=== PATIENT | male | born 1965 | race Caucasian/White ===

== ENCOUNTER 2017-01-19 20:39 | Emergency (ER) | payer OTHER | END 2017-01-19 22:15 | disposition home or self-care (01) | LOC: ER1 20:39 | DX: F41.0 Panic disorder [episodic paroxysmal anxiety] (principal) | CPT/HCPCS: 93005; 99284 ==

== ENCOUNTER 2020-12-01 01:03 | Emergency (ER) | payer OTHER ==
[2020-12-01 02:06] LABS: HEMOGLOBIN 15.1 gm/dl (14.0-17.5); RED BLOOD COUNT 5.18 M/UL (4.20-5.50); WHITE BLOOD COUNT 11.3 K/UL (4.5-11.0)
[2020-12-01 02:17] LABS: BUN/CREATININE RATIO 10 (0-10)
== END 2020-12-01 02:48 | disposition home or self-care (01) ==
LOC: ER1 01:03
PROVIDERS: Family Medicine
DX: F41.9 Anxiety disorder, unspecified (principal); E78.5 Hyperlipidemia, unspecified; E11.9 Type 2 diabetes mellitus without complications; I10 Essential (primary) hypertension; Z79.01 Long term (current) use of anticoagulants; Z79.899 Other long term (current) drug therapy
CPT/HCPCS: 80048; 84439; 84443; 85025; 93005; 99283

== ENCOUNTER 2021-08-29 13:28 | Emergency (ER) | payer OTHER ==
[2021-08-29 14:06] LABS: HEMOGLOBIN 14.5 gm/dl (14.0-17.5); RED BLOOD COUNT 5.01 M/UL (4.20-5.50); WHITE BLOOD COUNT 6.2 K/UL (4.5-11.0)
[2021-08-29 14:35] LABS: BUN/CREATININE RATIO 12 (0-10)
== END 2021-08-29 21:15 | disposition left against medical advice (07) ==
LOC: ER1 13:28 → CDU 16:21 → ER1 16:21
PROVIDERS: Physician Assistant
DX: U07.1 COVID-19 (principal); R55 Syncope and collapse; R53.1 Weakness; I10 Essential (primary) hypertension; E11.9 Type 2 diabetes mellitus without complications; E03.9 Hypothyroidism, unspecified; F41.9 Anxiety disorder, unspecified; I82.409 Acute embolism and thrombosis of unspecified deep veins of unspecified lower extremity
CPT/HCPCS: 70450; 71045; 80053; 82550; 82553; 82962; 83735; 83874; 84484; 85025; 93005; 99285; U0002